=== PATIENT | male | born 1970 | race Two or more races ===

== ENCOUNTER 2025-03-25 03:38 | Emergency (ER) | payer MEDICAID, OTHER ==
[~2025-03-25] VITALS: Ht 170.2 cm; Wt 70.0 kg
--- NOTE | 2025-03-25 03:51 | ED.PDOC ---
Back pain HPI HPI Comments 54-year-old male presents to the ED with right shoulder pain. Patient states positive ETOH tonight fell on his right side injured his right shoulder. He notes no numbness or weakness states unable to lift it rates pain 8/10 on pain scale sharp shooting type pain nonradiating. Denies numbness or weakness or any other known injury. Time Seen by MD: 03:45 Reviewed Notes: Nurses Notes, Medications, Allergies Information Source: Patient Past Medical History PAST MEDICAL HISTORY: Denies Surgical History: Denies all surgeries Family History Family History: Reviewed,noncontributory to illness Social History Smoker: Non-Smoker Alcohol: Occasionally Drugs: Denies Drug Use Constitutional: denies: chills, diaphoresis, fatigue, fever, malaise, sweats, weakness, others EENTM: denies: blurred vision, double vision, ear bleeding, ear discharge, ear drainage, ear pain, ear ringing, eye pain, eye redness, hearing loss, mouth pain, mouth swelling, nasal discharge, nose bleeding, nose congestion, nose pain, photophobia, tearing, throat pain, throat swelling, voice changes, others Respiratory: denies: cough, hemoptysis, orthopnea, SOB at rest, shortness of breath, SOB with excertion, stridor, wheezing, others Cardiovascular: denies: chest pain, dizzy spells, diaphoresis, Dyspnea on exertion, edema, irregular heart beat, left arm pain, lightheadedness, palpitations, PND, syncope, others Gastrointestinal: denies: abdomen distended, abdominal pain, blood streaked bowels, constipated, diarrhea, dysphagia, difficulty swallowing, hematemesis, melena, nausea, poor appetite, poor fluid intake, rectal bleeding, rectal pain, vomiting, others Genitourinary: denies: burning, dysuria, flank pain, frequency, hematuria, incontinence, penile discharge, penile sore, pain, testicle pain, testicle swelling, urgency, others Neurological: denies: dizziness, fainting, headache, left sided numbness, left sided weakness, numbness, paresthesia, pre-existing deficit, right sided numbness, right sided weakness, seizure, speech problems, tingling, tremors, weakness, others Musculoskeletal: reports: joint pain, joint swelling; denies: back pain, gout, muscle pain, muscle stiffness, neck pain, others Integumetry: denies: bruises, change in color, change in hair/nails, dryness, laceration, lesions, lumps, rash, wounds, others Allergic/Immunocompromised: denies: Difficulty Healing, Frequent Infections, Hives, Itching, others Hematologic/Lymphatic: denies: anemia, blood clots, easy bleeding, easy br uising, swollen glands, others Endocrine: denies: excessive hunger, excessive sweating, excessive thirst, excessive urination, flushing, intolerance to cold, intolerance to heat, unexplained weight gain, unexplained weight loss, others Psychiatric: denies: anxiety, bipolar disorder, depression, hopeless, panic disorder, schizophrenia, sleepless, suicidal, others Physical Exam General Appearance: No Apparent Distress, Normal HEENT: Pharynx Normal Neck: Full Range of Motion, Non-Tender Respiratory: Chest Non-Tender, Lungs Clear, No Accessory Muscle Use, No Respiratory Distress, Normal Breath Sounds Cardiovascular: No Edema, No JVD, No Murmur, No Gallop, Normal Peripheral Pulses, Regular Rate/Rhythm Breast Exam: Deferred Gastrointestinal: Non Tender, Soft Genitalia: Deferred Pelvic: Deferred Rectal: Deferred Extremities: Normal capillary refill, Normal inspection, Normal range of motion, Non-tender, No pedal edema Musculoskeletal : Location: Right Extremity Location: Shoulder (Shoulder appears to be dislocated anteriorly. Decreased range of motion moderate discomfort on palpation anterior shoulder. Strength sensory intact positive radial pulse) Apperance: Normal Neurologic: Alert, No Motor Deficits, Normal Affect, Normal Mood, No Sensory Deficits Cerebellar Function: Normal Reflexes: Normal Skin: Dry, Normal Color, Warm Lymphatic: No Adenopathy Was a procedure done? Was a procedure done?: Yes Sedation Sedation?: No Informed consent obtained: Yes Reduction Indication: Subluxation Sedation: Intra-articular, Other (Right shoulder) Intra-articular anesthetic melania: No Post-reduction x-ray show: Reduction, Good Alignment Informed consent obtained: Yes Risks/benefits/alt described: Yes Notes Patient given 4 mg of morphine IV push x2 tolerated well positive CSM before and after procedure patient placed in sling Back Pain Differential Dx Differential Diagnosis: Fracture, Musculoskeletal Pain X-Ray, Labs, Meds, VS Vital Signs Date Time Temp Pulse Resp B/P (MAP) Pulse Ox O2 Delivery O2 Flow Rate FiO2 03/25/25 05:23 74 18 143/81 03/25/25 04:10 98.6 77 18 140/96 (111) 94 98.6 Current Medications Medications (Trade) Dose Ordered Sig/Carlos Route Start Time Stop Time Status Last Admin Morphine Sulfate 4 mg ONCE ONCE IV 03/25/25 05:30 03/25/25 05:31 DC 03/25/25 05:23 X-Ray, Labs, Meds, VS Comment See procedure note. Script trial of ibuprofen advised take medication as prescribed side effects discussed. Relief sling on for comfort. Advised on ice and rest. Follow up with your PCP 2-3 days ER return precautions given patient indicates understanding and agrees with discharge plan of care. Time of 1ST Reevaluation: 03:50 Reevaluation 1ST: Unchanged Time of 2ND Reevaluation: 05:47 Reevaluation 2ND: Improved Patient Education/Counseling: Diagnosis, Treatment, Prognosis, Need For Follow Up Family Education/Counseling: Diagnosis, Treatment, Prognosis, Need For Follow Up SEPSIS Sepsis Screen Physician Orders Apply Sling (03/25/25 03:57) R Shoulder 2+ View Xray (03/25/25 03:57) R Shoulder 1v Xray (03/25/25 05:29) Morphine Sulfate Injection (03/25/25 05:45) Vital Signs Date Time Temp Pulse Resp B/P (MAP) Pulse Ox O2 Delivery O2 Flow Rate FiO2 03/25/25 05:23 74 18 143/81 03/25/25 04:10 98.6 77 18 140/96 (111) 94 98.6 Medications Medications Dose Ordered Sig/Carlos Route Start Time Stop Time Status Last Admin Dose Admin Morphine Sulfate 4 mg ONCE ONCE IV 03/25/25 05:30 03/25/25 05:31 DC 03/25/25 05:23 Departure 1 Departure Time of Disposition: 05:47 Impression: Primary Impression: Dislocation, shoulder, anterior Qualified Codes: S43.014A - Anterior dislocation of right humerus, initial encounter Disposition: HOME / SELF CARE / HOMELESS Condition: Stable e-Prescriptions Ibuprofen (Ibuprofen) 800 Mg Tab 800 MG PO Q8HP PRN for 4 Days, #12 TAB Prov: DONNA DAVID 03/25/25 Discharged With: Relative (Sibling) Critical Care Note Critical Care Time?: No Stability Stability form required: No DONNA DAVID Mar 25, 2025 03:50
[2025-03-25] MEDS ORDERED: HYDROcodone-ACET 5/325MG TAB PO ONE (04:00)
[2025-03-25] MEDS ORDERED: KETOROLAC TROMETH 60MG/2ML VIAL IM ONE (04:00)
--- NOTE | 2025-03-25 04:53 | DVH ---
CLINICAL INDICATION: INJURY/PAIN TECHNIQUE: XY R SHOULDER 2+ VIEW XRAY Comparison: None FINDINGS/IMPRESSION: : Anterior and inferior subluxation of the humeral head relative to the glenoid process of the scapula consistent with anterior shoulder dislocation. No definite evidence of fracture. The visualized portions of the lungs are clear. Soft tissues are unremarkable.
[2025-03-25 05:15] VITALS: PULSE 64; RESP 14; O2SAT 95
[2025-03-25] MEDS: MORPHINE SULFATE 4 MG/ML SYR/VIAL IV ONE ×2 (05:23→05:35)
[2025-03-25] MEDS: KETOROLAC TROMETH 30 MG/ML 1ML VIAL IV ONE (05:30)
[2025-03-25] MEDS: MORPHINE SULFATE 4 MG/ML SYR/VIAL ONE (05:32)
[2025-03-25] MEDS ORDERED: IBUP-1456 PO (05:49)
--- NOTE | 2025-03-25 06:11 | DVH ---
CLINICAL INDICATION: S/P REDUCCION TECHNIQUE: XY R SHOULDER 1V XRAY Comparison: XY R SHOULDER 2+ VIEW XRAY on DOS: 03/25/25 FINDINGS/IMPRESSION: : Normal glenohumeral articulation status post successful interval reduction of anterior shoulder dislo cation.
[2025-03-25 07:25] VITALS: BP 150/96; PULSE 62; RESP 16; TEMP 98.3; O2SAT 94
== END 2025-03-25 07:20 | disposition home or self-care (01) ==
LOC: ER 03:38
DX: S43.014A Anterior dislocation of right humerus, initial encounter (principal); F10.90 Alcohol use, unspecified, uncomplicated; X58.XXXA Exposure to other specified factors, initial encounter; Y93.9 Activity, unspecified; Y92.89 Other specified places as the place of occurrence of the external cause; Y99.8 Other external cause status; Y90.9 Presence of alcohol in blood, level not specified
CPT/HCPCS: 23650; 73020; 73030; 96374; 99284; J2270